=== PATIENT | female | born 1990 | race Caucasian/White ===

== ENCOUNTER 2023-07-28 16:15 | Inpatient (IN) | payer BC ==
[~2023-07-28] VITALS: Ht 167.6 cm; Wt 63.5 kg
[2023-07-28] MEDS ORDERED: LEVE1000 PO (16:43)
[2023-07-28] MEDS ORDERED: HYDROCODONE/APAP 5-325MG TABLET ONE (16:47)
[2023-07-28] MEDS: HYDROCODONE/APAP 5-325MG TABLET PO ONE (16:51)
[2023-07-28] MEDS ORDERED: KETOROLAC TROMETHAMINE 30 MG INJ ONE (20:25)
[2023-07-28] MEDS: KETOROLAC TROMETHAMINE 30 MG INJ IVP ONE (20:27)
[2023-07-28 20:35] LABS: *BILIRUBIN,URIN NEGATIVE (NEGATIVE); *BLOOD, URINE NEGATIVE (NEGATIVE); *CLARITY,URINE SLIGHTLY CLOUDY (CLEAR); *COLOR,URINE YELLOW (YELLOW); *KETONES,URINE NEGATIVE (NEGATIVE); *PROTEIN,URINE NEGATIVE (NEGATIVE); *UROBILINOGEN,URINE 0.2 E.U./dl (NORMAL); LEUKOCYTE ESTERASE ,URINE 1+ (NEGATIVE); NITRITE, URINE NEGATIVE (NEGATIVE); UGLUCOSE NEGATIVE (NEGATIVE)
[2023-07-28 20:39] LABS: *URINE HCG, QUAL NEGATIVE (NEGATIVE)
[2023-07-28 20:49] LABS: *AMPHETAMINE, URINE NEGATIVE (NEGATIVE); *BARBITURATE, URINE NEGATIVE (NEGATIVE); *BENZODIAZEPINE, URINE NEGATIVE (NEGATIVE); *CANNABINOID, URINE POSITIVE (NEGATIVE); *COCCAINE, URINE NEGATIVE (NEGATIVE); *OPIATE, URINE POSITIVE (NEGATIVE); *PHENCYCLIDINE SCREEN,URINE NEGATIVE (NEGATIVE); BACTERIA,URINE NONE SEEN /HPF (NONE SEEN); RBC,URINE NONE SEEN /HPF (0-3); SQUAMOUS EPITHELIAL CELL,UR NONE SEEN /HPF (NONE SEEN); WBC,URINE NONE SEEN /HPF (0-3)
[2023-07-28 20:50] LABS: BASOPHILS # (AUTO) 0.1 K/UL (0.0-0.2); BASOPHILS % (AUTO) 0.8 % (0.0-2.0); EOSINOPHILS # (AUTO) 0.1 K/uL (0.0-0.7); EOSINOPHILS % (AUTO) 0.6 % (0.0-7.0); HEMATOCRIT 40.5 % (31.2-41.9); HEMOGLOBIN 13.6 g/dL (10.9-14.3); LYMPHOCYTES # (AUTO) 3.1 K/uL (0.8-4.8); LYMPHOCYTES % (AUTO) 33.8 % (20.5-51.5); MEAN CORPUSCULAR HEMOGLOBIN 30.7 uug (24.7-32.8); MEAN CORPUSCULAR HGB CONC 34 g/dL (32.3-35.6); MEAN CORPUSCULAR VOLUME 91.3 fL (75.5-95.3); MONOCYTES # (AUTO) 0.5 K/uL (0.1-1.30); MONOCYTES % (AUTO) 5.6 % (0.0-11.0); NEUTROPHILS # (AUTO) 5.4 K/uL (1.8-8.9); NEUTROPHILS % (AUTO) 59.2 % (38.5-71.5); PLATELET COUNT (AUTO) 215 K/uL (179-408); RED BLOOD CELL COUNT(AUTO) 4.44 MIL/uL (3.63-4.92); RED CELL DISTRIBUTION WIDTH 12.6 % (12.3-17.7); WHITE BLOOD COUNT (AUTO) 9.1 K/uL (3.8-11.8)
[2023-07-28 20:54] LABS: FENTANYL, URINE NEGATIVE (NEGATIVE)
[2023-07-28 20:55] LABS: DIFFERENTIAL COMMENT 1
[2023-07-28 21:02] LABS: ETHANOL < 3 MG/DL (0-10)
[2023-07-28 21:07] LABS: ALANINE AMINOTRANSFERASE 19 U/L (14-59); ALBUMIN 3.9 g/dL (3.4-5.0); ALKALINE PHOSPHATASE 61 U/L (50-136); ASPARTATE AMINOTRANSFERASE 8 U/L (15-37); BILIRUBIN,TOTAL 0.6 mg/dL (0.2-1.0); CALCIUM 8.9 mg/dL (8.5-10.1); CARBON DIOXIDE 30 mmol/L (21-32); CHLORIDE 108 mmol/L (98-107); CREATININE 0.7 mg/dL (0.6-1.3); GLUCOSE 93 mg/dL (74-106); POTASSIUM 3.9 mmol/L (3.5-5.1); SODIUM SERUM 145 mmol/L (136-145); TOTAL PROTEIN, SERUM 7.2 g/dL (6.4-8.2); UREA NITROGEN, BLOOD 7 mg/dL (7-18)
[2023-07-28 22:15] VITALS: BP 124/76; TEMP 97.5; O2SAT 98
[2023-07-28] MEDS ORDERED: REMEDY ESSENTIAL ZINC PASTE 113 GM TP PRN (23:15)
[2023-07-28] MEDS ORDERED: LORAZEPAM 0.5 MG TABLET PO PRN (23:15)
[2023-07-28] MEDS ORDERED: ACETAMINOPHEN 325 MG TABLET PO PRN (23:15)
[2023-07-28] MEDS ORDERED: MAGNESIUM HYDROXIDE 30 ML LIQUID UDC PO PRN (23:15)
[2023-07-28] MEDS ORDERED: ZOLPIDEM 5 MG TABLET PO PRN (23:15)
[2023-07-29 00:05] VITALS: BP 95/50; TEMP 97.8; O2SAT 97
[2023-07-29] MEDS: TRAMADOL HCL 50 MG TABLET PO ONE (01:25)
[2023-07-29 06:40] VITALS: BP 98/64; TEMP 97.7; O2SAT 99
[2023-07-29 06:50] LABS: BASOPHILS # (AUTO) 0.1 K/UL (0.0-0.2); BASOPHILS % (AUTO) 0.6 % (0.0-2.0); EOSINOPHILS # (AUTO) 0.1 K/uL (0.0-0.7); EOSINOPHILS % (AUTO) 1.5 % (0.0-7.0); HEMOGLOBIN 13.5 g/dL (10.9-14.3); LYMPHOCYTES # (AUTO) 3.4 K/uL (0.8-4.8); LYMPHOCYTES % (AUTO) 36.8 % (20.5-51.5); MEAN CORPUSCULAR HGB CONC 34 g/dL (32.3-35.6); MEAN CORPUSCULAR VOLUME 92.1 fL (75.5-95.3); MONOCYTES # (AUTO) 0.7 K/uL (0.1-1.30); MONOCYTES % (AUTO) 7.8 % (0.0-11.0); NEUTROPHILS # (AUTO) 4.9 K/uL (1.8-8.9); NEUTROPHILS % (AUTO) 53.3 % (38.5-71.5); PLATELET COUNT (AUTO) 179 K/uL (179-408); RED BLOOD CELL COUNT(AUTO) 4.35 MIL/uL (3.63-4.92); RED CELL DISTRIBUTION WIDTH 12.8 % (12.3-17.7); WHITE BLOOD COUNT (AUTO) 9.1 K/uL (3.8-11.8)
[2023-07-29 06:58] LABS: DIFFERENTIAL COMMENT 1
[2023-07-29 07:04] LABS: CREATININE 0.8 mg/dL (0.6-1.3); MAGNESIUM 2.3 mg/dL (1.8-2.4); PHOSPHOROUS 3.7 mg/dL (2.5-4.9)
[2023-07-29 07:16] LABS: POTASSIUM 4.4 mmol/L (3.5-5.1)
[2023-07-29 08:00] VITALS: BP 99/54; TEMP 97.9; O2SAT 97
[2023-07-29] MEDS ORDERED: ACETAMINOPHEN 325 MG TABLET PO PRN (08:15)
[2023-07-29] MEDS: TRAMADOL HCL 50 MG TABLET PO PRN (09:02)
[2023-07-29] MEDS: levETIRAcetam 500 MG TABLET PO SCH (09:12)
[2023-07-29 12:00] VITALS: BP 102/54; TEMP 97.7; O2SAT 97
[2023-07-29] MEDS: ONDANSETRON 4 MG/2 ML VIAL IV PRN (12:22)
[2023-07-29] MEDS ORDERED: TRAM50TA2 PO (12:38)
== END 2023-07-29 14:10 | disposition other institution (70) | DRG 89 ==
LOC: ER 16:17 → TELE3 21:49
PROVIDERS: ADMIT Nurse Practitioner Acute Care; ATTEND Nurse Practitioner Acute Care
DX: S06.0X1A Concussion with loss of consciousness of 30 minutes or less, initial encounter (principal); S05.92XA Unspecified injury of left eye and orbit, initial encounter; R40.2362 Coma scale, best motor response, obeys commands, at arrival to emergency department; R40.2142 Coma scale, eyes open, spontaneous, at arrival to emergency department; R40.2252 Coma scale, best verbal response, oriented, at arrival to emergency department; W01.198A Fall on same level from slipping, tripping and stumbling with subsequent striking against other object, initial encounter; Y93.E8 Activity, other personal hygiene; Y92.091 Bathroom in other non-institutional residence as the place of occurrence of the external cause; G40.909 Epilepsy, unspecified, not intractable, without status epilepticus; Z66 Do not resuscitate; F12.10 Cannabis abuse, uncomplicated; H54.8 Legal blindness, as defined in USA; Z88.6 Allergy status to analgesic agent; Z79.899 Other long term (current) drug therapy; M54.9 Dorsalgia, unspecified; M54.2 Cervicalgia
CPT/HCPCS: 36415; 70450; 70486; 72125; 83735; 84100; 84703; 85025; A4663; G0378; G0480; J1885; J2405